=== PATIENT | female | born 1945 | race Caucasian/White ===

== ENCOUNTER → 2017-01-29 | Outpatient (CLI) | payer MEDICARE, BC ==
[~2017-01-29] MED LIST: INSU100C5 SQ-INSULIN; INSU100V8 SQ; LEVO500T47 PO; LEVO75TA PO; METF500T4 PO; RAMI5CAP35 PO
== END | disposition home or self-care (01) ==
LOC: CFH 08:45
PROVIDERS: ATTEND Family Medicine
DX: Z12.31 Encounter for screening mammogram for malignant neoplasm of breast (principal); M85.88 Other specified disorders of bone density and structure, other site; M48.54XA Collapsed vertebra, not elsewhere classified, thoracic region, initial encounter for fracture; R91.8 Other nonspecific abnormal finding of lung field
CPT/HCPCS: 71020; 77080; G0202

== ENCOUNTER → 2018-04-27 | Outpatient (CLI) | payer MEDICARE, BC ==
[~2018-04-27] MED LIST changes: +METF500T17 PO; -METF500T4 PO
== END | disposition home or self-care (01) ==
LOC: CFH 07:18
PROVIDERS: ATTEND Internal Medicine Cardiovascular Disease
DX: I34.0 Nonrheumatic mitral (valve) insufficiency (principal); I10 Essential (primary) hypertension; E78.5 Hyperlipidemia, unspecified; E11.9 Type 2 diabetes mellitus without complications
CPT/HCPCS: 78452; 93017; 93306; A9502

== ENCOUNTER → 2019-09-08 | Outpatient (CLI) | payer MEDICARE, BC ==
[~2019-09-08] MED LIST changes: +ASPI500T4 PO; +ATOR10TA9 PO; +BASAGLAR KWIKPEN; +BASAGLAR KWIKPEN SQ; +LOSARTAN; +LOSARTAN PO; +MULT-717 PO; +VITAMIN D
== END | disposition home or self-care (01) ==
LOC: RAD 16:16
PROVIDERS: ATTEND Family Medicine
DX: S00.03XA Contusion of scalp, initial encounter (principal); G31.89 Other specified degenerative diseases of nervous system; M12.88 Other specific arthropathies, not elsewhere classified, other specified site; M50.31 Other cervical disc degeneration, high cervical region; X58.XXXA Exposure to other specified factors, initial encounter; Y93.89 Activity, other specified; Y92.89 Other specified places as the place of occurrence of the external cause; Y99.8 Other external cause status
CPT/HCPCS: 70450; 72125

== ENCOUNTER → 2020-01-28 | Outpatient (CLI) | payer MEDICARE, BC | END | disposition home or self-care (01) | LOC: CVU 10:20 | PROVIDERS: ATTEND Specialist | DX: I65.23 Occlusion and stenosis of bilateral carotid arteries (principal); I05.8 Other rheumatic mitral valve diseases; I67.89 Other cerebrovascular disease; R27.0 Ataxia, unspecified; E11.9 Type 2 diabetes mellitus without complications; I10 Essential (primary) hypertension; E78.5 Hyperlipidemia, unspecified; I05.1 Rheumatic mitral insufficiency | CPT/HCPCS: 93306; 93880 ==